=== PATIENT | male | born 1950 | race Caucasian/White ===

== ENCOUNTER 2018-05-15 11:04 | Inpatient (IN) | payer MEDICARE, MEDICAID ==
[~2018-05-15] VITALS: Ht 182.9 cm; Wt 62.7 kg
--- NOTE | ~2018-05-15 | HEMODYNAMI ---
PATIENT:PAWEL TOBAR MEDICAL RECORD: [id number] : 54 LOCATION:[place] [address] ADMISSION DATE: 05/15/18 Generatedon:05/17/20187:56 Patient name: PAWEL TOBAR Patient #: [id number] SSN: DO B: 1950 Date of study: 05/17/2018 Page: Of Hemodynamic Procedure Report Patient Data Patient Demographics Procedure consent was obtained First Name: PAWEL Gender: Male Last Name: AMADOU : 1950 Patient #: [id number] Age: 67 year(s) Race: Unknown Additional ID: [id number] Contact details Address: [address] [place] [address] State: [place] City: [place] Zip code: [address] Past Medical History Allergies: No known allergies Admission Admission Data Admission Date: 05/15/2018 Admission Time: 16:35 Room #: [facility] Procedure Procedure Types Cath Procedure Diagnostic Procedure LHC LHC w/Coronaries Sedation Charges Moderate Sedation up to 15 minutes Procedure Description Procedure Date Procedure Date: 05/17/2018 Procedure Start Time: 7:33 Procedure End Time: 7:56 Procedure Staff Name Function Kiko Currie MD Performing Physician Maggi Finch RT Monitor Paola Stern RN Nurse Berkley Noriega RT Scrub Amanda Blackburn RT Scrub Duncan Loo RT Surgical Dental Assistant Rachel Ernst RN Surgical Dental Assistant Procedure Data Cath Procedure Fluoroscopy Diagnostic fluoroscopy Total fluoroscopy Time: 3.9 time: 3.9 min min Diagnostic fluoroscopy Total fluoroscopy dose: 371 dose: 371 mGy mGy Contrast Material Contrast Material Type Amount (ml) Isovue 300 138 Entry Location Entry Primary Successful Side Size Upsize Upsize Entry Closure Succes sful Closure Location (Fr) 1 (Fr) 2 (Fr) Remarks Device Remarks Femoral Right 5 Fr Exoseal artery Estimated blood loss: 5 ml Diagnostic catheters Device Type Used For End Catheter Placement MULTIPACK JL 4.0 5Fr Left Coronary catheter Angiography DIAGNOSTIC JL 5 5Fr Left Coronary catheter ([id number]) Angiography MULTIPACK 3DRC 5Fr Right Coronary catheter Angiography MULTIPACK Pigtail 5 Fr LV Angiography catheter MULTIPACK Pigtail 5 Fr Aortic Root catheter Angiography Procedure Complications No complications Procedure Medications Medication Administration Route Dosage Oxygen etCO2 Nasal cannula 2 l/min Lidocaine 2% added to field 20 Heparin Flush Bag added to field 2 bags (1000units/500ml NS) 0.9% NaCl I.V. 100 ml/hr Versed I.V. 1 mg Fentanyl I.V. 50 mcg Versed I.V. 1 mg Fentanyl I.V. 50 mcg Hemodynamics Rest Heart Rate: 112 (bpm) Pressure Samples Time Site Value (mmHg) Purpose Heart Use Rate(bpm) 7:47 LV 126/1,12 EDP 108 7:48 AO 126/62(90) Pullback 102 7:48 LV 120/-3,5 Pullback 102 Gradients Valve Time Site 1 Site 2 Mean SEP/DFP Peak To Heart Use (mmHg) (sec/min) Peak Rate (mmHg) (bpm) Aortic 7:48 LV AO 0 9 0 102 120/-3,5 126/62(90) Calculations Valve P-P Mean Valve Index Valve Source Name Gradient Area Flow (cm2) Aortic 0 0 0 0 Snapshots Pre Cath Intra NCS Post Cath Vital Signs Time Heart Resp SPO2 etCO2 NIBP (mmHg) Rhythm Pain Sedation Rate (ipm) (%) (mmHg) Status Level (bpm) 7:15:16 112 18 100 29.5 149/88(101) NSR 0 (11) 10(A) , No pain 7:19:28 110 17 100 26.5 134/78(99) NSR 0 (11) 10(A) , No pain 7:23:38 106 16 99 26.5 126/80(94) NSR 0 (11) 10(A) , No pain 7:27:44 104 16 97 15.1 118/74(95) NSR 0 (11) 9(A) , No pain 7:31:49 104 27 97 16.6 120/76(93) NSR 0 (11) 9(A) , No pain 7:35:57 105 14 97 19.6 121/78(92) NSR 0 (11) 9(A) , No pain 7:40:05 104 11 96 16.6 121/74(91) NSR 0 (11) 9(A) , No pain 7:44:11 100 14 96 29.5 114/70(88) NSR 0 (11) 9(A) , No pain 7:48:13 102 12 96 29.5 118/74(88) NSR 0 (11) 9(A) , No pain 7:52:22 100 15 96 30.2 121/73(87) NSR 0 (11) 10(A) , No pain Medications Time Medication Route Dose Verified Delivered Reason Notes Effe ctiveness by by 7:19:42 Oxygen etCO2 2 Kiko Buffie used for Nasal l/min Kush Ernst RN procedure cannula 7:20:08 Lidocaine 2% added 20ml Kiko Kiko for local to vial Kush Currie MD anesthetic field 7:20:17 Heparin Flush added 2 Kiko Kiko used for Bag to bags Kush Currie MD procedure (1000units/500ml field NS) 7:20:29 0.9% NaCl I.V. 100 Kiko Buffie Per ml/hr Kush Ernst RN physician 7:23:01 Versed I.V. 1 mg Kiko Buffie for Kush Ernst RN sedation 7:23:09 Fentanyl I.V. 50 Kiko Buffie for mcg Kush Ernst RN sedation 7:29:11 Versed I.V. 1 mg Kiko Buffie for Kush Ernst RN sedation 7:29:15 Fentanyl I.V. 50 Kiko Buffie for mcg Kush Ernst RN sedation Procedure Log Time Note 6:55:39 Duncan Loo RT(R) sent for patient. Start room use. 6:55:40 Time tracking: Regular hours (M-F 7:00 - 5:00) 6:55:44 Plan of Care:Hemodynamics will remain stable., Cardiac rhythm will remain stable., Comfort level will be maintained., Respiratory function will remain adequate., Patient/ family verbilizes understanding of procedure., Procedure tolerated without complication., Recovers from procedure without complications.. 7:08:05 Patient received from PCU to CCL 1 Alert and oriented. Tansferred to table in Supine position. 7:08:06 Warm blankets applied, and amanda hugger turned on for patient comfort. 7:08:06 Correct patient and procedure confirmed by team. 7:08:08 Signed procedure consent form obtained from patient. 7:08:10 ECG and BP/O2 sat monitors applied to patient. 7:08:11 Full Disclosure recording started 7:13:01 Rhythm: sinus tachycardia 7:13:14 Vital chart was started 7:13:27 H&P Date Dictated: 05/16/2018 Within 30 days and on chart.. 7:13:29 Pre-procedure instructions explained to patient. 7:13:29 Pre-op teaching completed and patient verbalized understanding. 7:13:34 Family in patients room. 7:13:35 Patient NPO since Midnight. 7:13:42 Patient allergic to No known allergies 7:13:44 Is the patient allergic to Iodine/contrast media? No. 7:13:45 Is patient on blood thinner?No 7:13:46 Patient diabetic? No. 7:14:00 Previous problem with sedation/anesthesia? No ? 7:14:02 Snore? Yes 7:14:04 Sleep apnea? No 7:14:06 Deviated septum? No 7:14:06 Opens mouth fully? Yes 7:14:07 Sticks out tongue? Yes 7:14:12 Airway obstruction? Yes COPD 7:14:16 Dentures? Yes IN 7:14:20 Pre procedure: right dorsailis pedis pulse 2+ Normal; easily identifiable; not easily obliterated 7:14:23 Patient pain scale 0/10 ?. 7:14:30 IV patent on arrival in right wrist with 0.9% NaCl at O. 7:14:33 Lab results completed and on chart. 7:14:36 Right groin area was prepped with chlora-prep and draped in sterile fashion 7:14:37 Alarms reviewed by R. N. 7:14:37 Sharps counted by scrub and verified by R.N. 7:14:45 Use device set Femoral Dx 7:14:46 ACIST Syringe (04536) opened to sterile field. 7:14:47 Bag Decanter (2002) opened to sterile field. 7:14:47 Medline Cath Pack ([id number]) opened to sterile field. 7:14:48 DIAGNOSTIC WIRE .035 260cm J wire (491339) opened to sterile field. 7:14:49 ACIST Hand Control (66517) opened to sterile field. 7:14:49 ACIST Manifold (17277) opened to sterile field. 7:14:50 DIAGNOSTIC Multipack 5Fr catheter set (PL7105) opened to sterile field. 7:14:51 Tegaderm 4 x 4 (1626W) opened to sterile field. 7:14:52 SHEATH 5FR Arnot ([id number]) opened to sterile field. 7:15:05 Baseline sample Acquired. 7:19:42 Oxygen 2 l/min etCO2 Nasal cannula was administered by Rachel Ernst RN; used for procedure; 7:20:08 Lidocaine 2% 20ml vial added to field was administered by Kiko Currie MD; for local anesthetic; 7:20:17 Heparin Flush Bag (1000units/500ml NS) 2 bags added to field was administered by Kiko Currie MD; used for procedure; 7:20:29 0.9% NaCl 100 ml/hr I.V. was administered by Rachel Ernst RN; Per physician; 7:22:21 Final Timeout: patient, procedure, and site verified with staff and physician. All members of the team are in agreement. 7:22:23 Right groin site verified by team. 7:22:26 Fire Safety Assessment: A--An alcohol-based skin anteseptic being used preoperatively., C--Open oxygen or nitrous oxide is being used., D--An ESU, laser, or fiber-optic light is being used. 7:22:30 Physical assessment completed. ASA score P 2 - A patient with mild systemic disease as per Kiko Currie MD. 7:22:32 Sedation plan: IV Moderate Sedation Medication:Versed, Fentanyl 7:23:01 Versed 1 mg I.V. was administered by Rachel Ernst RN; for sedation; 7:23:09 Fentanyl 50 mcg I.V. was administered by Rachel Ernst RN; for sedation; 7:29:11 Versed 1 mg I.V. was administered by Rachel Ernst RN; for sedation; 7:29:11 Zero performed for pressure channel P1 7:29:15 Fentanyl 50 mcg I.V. was administered by Rachel Ernst RN; for sedation; 7:33:33 Procedure started. 7:33:36 Local anesthetic to right femoral artery with Lidocaine 2% by Kiko Currie MD.INITIAL ACCESS ONLY 7:34:47 A 5 Fr sheath was inserted into the Right Femoral artery 7:35:41 A MULTIPACK JL 4.0 5Fr catheter was advanced over the wire and used for Left Coronary Angiography. UNABLE TO CANNULATE 7:36:36 Catheter removed. 7:37:18 A DIAGNOSTIC JL 5 5Fr catheter ([id number]) was advanced over the wire and used for Left Coronary Angiography. 7:41:39 Catheter removed. 7:42:36 A MULTIPACK 3DRC 5Fr catheter was advanced over the wire and used for Right Coronary Angiography. 7:44:51 Catheter removed. 7:47:21 A MULTIPACK Pigtail 5 Fr catheter was advanced over the wire and used for LV Angiography. 7:47:37 LV gram done using ELKINS 7:47:39 LV hemodynamics recorded. 7:47:42 Injector settings: Ml/sec: 7, Volume: 15, 7:47:59 EF : 40 % 7:48:39 A MULTIPACK Pigtail 5 Fr catheter was advanced over the wire and used for Aortic Root Angiography. 7:49:15 Injector settings: Ml/sec: 15, Volume: 30, 7:49:39 Catheter removed. 7:49:54 EXOSEAL 5Fr (EX500) opened to sterile field. 7:50:08 Sheath removed intact; hemostasis achieved with Exoseal to the Right Femoral artery. 7:50:11 Procedure ended.(Physican Out) 7:50:33 Fluoroscopy time 03.90 minutes. 7:50:37 Fluoroscopy dose: 371 mGy 7:50:37 Flurop Dose total: 371 7:50:58 Contrast amount:Isovue 300 138ml. 7:51:00 Sharps counted by scrub and verified by R.N. 7:51:01 Insertion/operative site no bleeding no hematoma. 7:51:04 Post-op/insertion site Right Femoral artery dressed using a 4 x 4 and Tegaderm. 7:53:52 Post right femoral artery:stable, clean and dry 7:53:54 Post Procedure Pulses reassessed and unchanged 7:53:56 Post-procedure physical assessment completed. ASA score P 2 - A patient with mild systemic disease as per Kiko Currie MD. 7:54:00 Post procedure rhythm: unchanged. 7:54:03 Estimated blood loss: 5 ml 7:54:05 Post procedure instruction explained to patient.Patient verbalizes understanding. 7:54:05 Patient needs reinforcement of post procedure teaching. 7:54:11 Procedure Complication : No complications 7:54:15 See physician's report for complete and final results. 7:55:07 Procedure type changed to Cath procedure, Diagnostic procedure, LHC, LHC w/Coronaries, Sedation Charges, Moderate Sedation up to 15 minutes 7:55:20 Procedure and supply charges have been captured, reviewed, submitted and are correct. 7:55:39 Vital chart was stopped 7:55:44 Report given to PCU. 7:55:48 Patient transfered to PCU with Bed. 7:56:01 Procedure ended. 7:56:01 Full Disclosure recording stopped 7:56:10 End room use (Document Last) Device Usage Item Name Manufacture Quantity Catalog Hospital Part Current Minimal L ot# / Number Charge Number Stock Stock Serial# Code ACIST Acist 1 62061 441093 604927 599119 20 Syringe Medical (50486) Systems Inc Bag Microtek 1 473618 53768 529253 5 Decanter Medical Inc. () Medline Medline 1 [id number] 470129 11427 801195 5 Cath Pack ([id number]) DIAGNOSTIC St Christos 1 920956 555575 118118 122221 30 WIRE .035 260cm J wire (219329) ACIST Hand Acist 1 11863 179139 282641 683369 5 Control Medical (93639) Systems Inc ACIST Acist 1 12224 800051 193148 917057 5 Manifold Medical (96210) Systems Inc DIAGNOSTIC Cardinal 1 [id number] 170635 39517 812511 30 Multipack Health 5Fr catheter set (HL2220) Tegaderm 4 3M 1 1626W 738350 779979 829067 5 x 4 (1626W) SHEATH 5FR Terumo 1 LUJ186 319470 681295 862354 5 Arnot (MDX252) MULTIPACK Cardinal 1 904223 5 JL 4.0 5Fr Health catheter DIAGNOSTIC Cardinal 1 134455Y 202607 738601 682883 5 JL 5 5Fr Health catheter (300851Z) MULTIPACK Cardinal 1 708790 5 3DRC 5Fr Health catheter MULTIPACK Cardinal 1 110089 5 Pigtail 5 Health Fr catheter EXOSEAL 5Fr Cardinal 1 EX500 763756 627302 692993 10 (EX500) Health Signature Audit Glover Stage Time Signature Unsigned Intra-Procedure 05/17/2018 Maggi 7:56:33 AM Counts RT(R) Signatures Monitor : Maggi Signature : Counts RT Date : Time : [address] [place] [address]
[2018-05-15 12:02] LABS: BASOPHILS 0.1 % (0-2); EOSINOPHILS 0 % (0-7); HEMATOCRIT 45.7 % (42.0-54.0); HEMOGLOBIN 15.1 g/dL (13.5-17.5); IMMATURE GRANULOCYTES 0.3 % (0-5); LYMPHOCYTES 4.2 % (15-50); MCH 28.6 pg (26.0-34.0); MCV 86.6 fL (80.0-100.0); MEAN PLATELET VOLUME 8.9 fL (7.4-10.4); MONOCYTES 3.4 % (2-11); PLATELET COUNT 361 10x3/uL (130-400); RBC 5.28 10x6/uL (4.20-6.10); RDW 15.8 % (11.5-14.5); WBC 11.9 10x3/uL (4.8-10.8)
[2018-05-15 12:25] VITALS: BP 132/75
[2018-05-15 12:25] LABS: INR 1.13 (0.85-1.17)
[2018-05-15 12:28] LABS: ALBUMIN 3.9 g/dL (3.4-5.0); ANION GAP 16.4 mmol/L (8-16); BILIRUBIN - TOTAL 0.48 mg/dL (0.2-1.3); CALCIUM 8.8 mg/dL (8.5-10.1); CARBON DIOXIDE 24.5 mmol/L (21.0-32.0); CREATININE - SERUM 1.1 mg/dL (0.6-1.3); POTASSIUM - SERUM 4.9 mmol/L (3.5-5.1); PROTEIN - SERUM 7.7 g/dL (6.4-8.2)
[2018-05-15 12:46] LABS: TROPONIN-I 0.725 ng/mL (0.000-0.060)
[2018-05-15 13:35] VITALS: BP 142/84
[2018-05-15 15:46] VITALS: BP 119/65
[2018-05-15 17:40] VITALS: BP 113/95
[2018-05-15] MEDS ORDERED: XANAX1 MG PO (21:20)
[2018-05-15] MEDS ORDERED: NEURONTIN 300300 MG PO (21:21)
[2018-05-15] MEDS ORDERED: MEGACE40 MG PO (21:21)
[2018-05-15] MEDS ORDERED: XOPENEX 0.0.63 MG/3 UPD (21:23)
[2018-05-15] MEDS ORDERED: ALBUTEROL SULF8.5 GM INH (21:40)
[2018-05-15 23:52] VITALS: BP 109/63
[2018-05-16 03:30] VITALS: BP 109/63; BMI 19.1
[2018-05-16 03:45] VITALS: BP 113/57
[2018-05-16 06:34] LABS: BASOPHILS 0 % (0-2); EOSINOPHILS 0.2 % (0-7); HEMOGLOBIN 12.2 g/dL (13.5-17.5); IMMATURE GRANULOCYTES 0.3 % (0-5); LYMPHOCYTES 8.2 % (15-50); MCH 28.3 pg (26.0-34.0); MCHC 33.7 g/dL (31.0-37.0); MEAN PLATELET VOLUME 9.4 fL (7.4-10.4); MONOCYTES 7.9 % (2-11); NEUTROPHILS 83.4 % (40-80); PLATELET COUNT 344 10x3/uL (130-400); RBC 4.31 10x6/uL (4.20-6.10); RDW 15.8 % (11.5-14.5); WBC 11.7 10x3/uL (4.8-10.8)
[2018-05-16 06:41] LABS: HEMATOCRIT 36.2 % (42.0-54.0)
[2018-05-16 07:00] LABS: CALC OSMOLALITY 283 mosm/kg (275-300); CARBON DIOXIDE 23.9 mmol/L (21.0-32.0); CHLORIDE - SERUM 103 mmol/L (98-107); GLUCOSE 109 mg/dL (74-106); SODIUM 138 mmol/L (136-145); UREA NITROGEN 31 mg/dL (7-18); eGFR NON AFRICAN AMERICAN 80 mL/min (90-120)
[2018-05-16 08:44] VITALS: BP 113/59
[2018-05-16 12:02] VITALS: BP 116/65
[2018-05-16 13:56] VITALS: Ht 182.9 cm; Wt 62.7 kg
[2018-05-16 16:01] VITALS: BP 148/77
[2018-05-16] MEDS ORDERED: BREO ELLIPTA 11 EACH INH (19:15)
[2018-05-16 20:00] VITALS: BP 147/87
[2018-05-17] VITALS: BP 133/67
[2018-05-17 04:00] VITALS: BP 103/64
[2018-05-17 05:36] LABS: BASOPHILS 0.2 % (0-2); EOSINOPHILS 1.4 % (0-7); HEMATOCRIT 40.5 % (42.0-54.0); HEMOGLOBIN 13.4 g/dL (13.5-17.5); IMMATURE GRANULOCYTES 0.1 % (0-5); LYMPHOCYTES 12.1 % (15-50); MCH 27.9 pg (26.0-34.0); MCHC 33.1 g/dL (31.0-37.0); MCV 84.2 fL (80.0-100.0); MONOCYTES 11.9 % (2-11); NEUTROPHILS 74.3 % (40-80); PLATELET COUNT 341 10x3/uL (130-400); RBC 4.81 10x6/uL (4.20-6.10); RDW 15.7 % (11.5-14.5)
[2018-05-17 05:46] LABS: WBC 8.3 10x3/uL (4.8-10.8)
[2018-05-17 05:48] LABS: CALCIUM 8.1 mg/dL (8.5-10.1); CARBON DIOXIDE 26.4 mmol/L (21.0-32.0); CREATININE - SERUM 1.2 mg/dL (0.6-1.3); POTASSIUM - SERUM 3.4 mmol/L (3.5-5.1)
[2018-05-17 09:47] VITALS: BP 115/66
[2018-05-17 20:00] VITALS: BP 145/77
[2018-05-18] VITALS: BP 153/76
[2018-05-18 04:00] VITALS: BP 138/75
[2018-05-18 06:24] LABS: BASOPHILS 0.3 % (0-2); EOSINOPHILS 1.6 % (0-7); HEMATOCRIT 40.4 % (42.0-54.0); HEMOGLOBIN 13.3 g/dL (13.5-17.5); IMMATURE GRANULOCYTES 0.3 % (0-5); LYMPHOCYTES 13.6 % (15-50); MCH 28.2 pg (26.0-34.0); MCHC 32.9 g/dL (31.0-37.0); MCV 85.6 fL (80.0-100.0); MEAN PLATELET VOLUME 9.4 fL (7.4-10.4); MONOCYTES 11.4 % (2-11); NEUTROPHILS 72.8 % (40-80); PLATELET COUNT 332 10x3/uL (130-400); RBC 4.72 10x6/uL (4.20-6.10); RDW 15.7 % (11.5-14.5)
[2018-05-18 06:44] LABS: ANION GAP 13.1 mmol/L (8-16); CALCIUM 8.2 mg/dL (8.5-10.1); CARBON DIOXIDE 29.9 mmol/L (21.0-32.0); CREATININE - SERUM 1.1 mg/dL (0.6-1.3)
[2018-05-18 08:07] VITALS: BP 117/69
[2018-05-18 12:11] VITALS: BP 121/72
[2018-05-18 15:33] VITALS: BP 116/64
[2018-05-18 20:00] VITALS: BP 138/78
[2018-05-19 04:00] VITALS: BP 140/70
[2018-05-19 06:40] LABS: ANION GAP 15.5 mmol/L (8-16); CALCIUM 8.4 mg/dL (8.5-10.1); CARBON DIOXIDE 29.2 mmol/L (21.0-32.0); CREATININE - SERUM 1.1 mg/dL (0.6-1.3); POTASSIUM - SERUM 3.7 mmol/L (3.5-5.1)
[2018-05-19 06:42] LABS: BASOPHILS 0.3 % (0-2); EOSINOPHILS 2.3 % (0-7); HEMATOCRIT 41.4 % (42.0-54.0); HEMOGLOBIN 13.8 g/dL (13.5-17.5); IMMATURE GRANULOCYTES 0.2 % (0-5); LYMPHOCYTES 11.8 % (15-50); MCH 28.3 pg (26.0-34.0); MCHC 33.3 g/dL (31.0-37.0); MEAN PLATELET VOLUME 9.3 fL (7.4-10.4); MONOCYTES 10.2 % (2-11); NEUTROPHILS 75.2 % (40-80); PLATELET COUNT 365 10x3/uL (130-400); RBC 4.87 10x6/uL (4.20-6.10); RDW 15.6 % (11.5-14.5); WBC 9.3 10x3/uL (4.8-10.8)
[2018-05-19 08:40] VITALS: BP 108/49
[2018-05-19 11:37] VITALS: BP 120/70
[2018-05-19 15:56] VITALS: BP 120/68
[2018-05-19 20:00] VITALS: BP 144/75
[2018-05-20] VITALS: BP 106/48
[2018-05-20 04:00] VITALS: BP 107/64
[2018-05-20 06:26] LABS: ANION GAP 12.6 mmol/L (8-16); CALCIUM 8.5 mg/dL (8.5-10.1); CARBON DIOXIDE 29.9 mmol/L (21.0-32.0); CREATININE - SERUM 1.2 mg/dL (0.6-1.3); POTASSIUM - SERUM 3.5 mmol/L (3.5-5.1)
[2018-05-20 06:30] LABS: HEMATOCRIT 40.8 % (42.0-54.0); HEMOGLOBIN 13.6 g/dL (13.5-17.5); LYMPHOCYTES 7.1 % (15-50); MCH 28.2 pg (26.0-34.0); MCHC 33.3 g/dL (31.0-37.0); MCV 84.5 fL (80.0-100.0); MEAN PLATELET VOLUME 8.9 fL (7.4-10.4); NEUTROPHILS 82.6 % (40-80); PLATELET COUNT 345 10x3/uL (130-400); RBC 4.83 10x6/uL (4.20-6.10); RDW 15.1 % (11.5-14.5); WBC 9.6 10x3/uL (4.8-10.8)
[2018-05-20 08:20] VITALS: BP 110/62
[2018-05-20 13:01] VITALS: BP 111/62
[2018-05-20] MEDS ORDERED: LISINOPRIL2.5 MG PO (13:10)
[2018-05-20] MEDS ORDERED: CARDIZEM CD240 MG PO (13:11)
--- NOTE | 2018-05-20 16:19 | MORECARE ---
CASE MANAGEMENT DISCHARGE SUMMARY PATIENT: PAWEL TOBAR UNIT: [id number] ADM DATE: 05/15/18 AGE: 67 : 52 SEX: M ROOM/BED: D.2131 AUTHOR: MADELINE FLAHERTY PHYSICIAN: REFERRING PHYSICIAN: BRITTNEY PRINCE MD DATE OF SERVICE: 05/20/18 Discharge Plan Patient Name: PAWEL TOBAR Facility: [facility]:[place] : 1950 Planned Disposition: Home Anticipated Discharge Date: 05/20/18 Discharge Date: 05/20/2018 Expected LOS: 5 Initial Reviewer: [email or web address] Initial Review Date: 05/20/2018 Generated: 05/20/18 5:19 pm DCPIA - Discharge Planning Initial Assessment Updated by [email or web address]: Carson Rice on 05/20/18 4:15 pm * Is the patient Alert and Oriented? Yes * How many steps to enter\exit or inside your home? 1-0 / 4-I * PCP HYGIENE COORDINATOR [facility] [place] * Pharmacy [facility] * Preadmission Environment Home with Family * ADLs Independent * Equipment Nebulizer Oxygen * Other Equipment HOME OXYGEN ONLY, WEARS PRN [facility] - PROVIDER * List name and contact numbers for known caregivers / representatives who currently or will assist patient after discharge: DARWIN TOBAR, SPOUSE, * Verbal permission to speak to the caregivers and representatives has been obtained from the patient. Yes * Community resources currently utilized None * Please name any agencies selected above. NONE * Additional services required to return to the preadmission environment? No * Can the patient safely return to the preadmission environment? Yes * Has this patient been hospitalized within the prior 30 days at any hospital? No Patient Name: PAWEL TOBAR Page [id number] at 1619 All edits/amendments must be made on the electronic document DICTATION DATE: 05/20/18 1619 SAND FILLER: NICOLE 05/20/18 1619 RPT#: [id number] DC DATE:05/20/18 STATUS: DIS IN [place] [address] [place] [address] END OF REPORT
[2018-05-20] MEDS ORDERED: CARDIZEM CD360 MG PO (16:28)
--- NOTE | 2018-05-20 16:36 | MORECARE ---
CASE MANAGEMENT DISCHARGE SUMMARY PATIENT: PAWEL TOBAR UNIT: [id number] ADM DATE: 05/15/18 AGE: 67 : 52 SEX: M ROOM/BED: D.2131 AUTHOR: REYNOLD,DOC PHYSICIAN: REFERRING PHYSICIAN: BRITTNEY PRINCE MD DATE OF SERVICE: 05/20/18 Discharge Plan Patient Name: PAWEL TOBAR Facility: [facility]:[place] : 1950 Planned Disposition: Home Anticipated Discharge Date: 05/20/18 Discharge Date: 05/20/2018 Expected LOS: 5 Initial Reviewer: [email or web address] Initial Review Date: 05/20/2018 Generated: 05/20/18 5:35 pm Comments DCP- Discharge Planning Updated by [email or web address]: Carson Rice on 05/20/18 3:[address] Patient Name: PAWEL TOBAR Admission Status: ER Accout number: [id number] Admission Date: 05-15-2018 : 1950 Admission Diagnosis:SHORTNESS OF BREATH Attending: BRITTNEY PRINCE Current LOS: 5 Anticipated DC Date: 05-20-2018 Planned Disposition: Home Primary Insurance: [facility] MEDICARE SOLUTIONS Discharge Planning Comments: CM MET WITH PT AND SPOUSE/FAMILY IN ROOM TO DISCUSS DISCHARGE PLANNING AND NEEDS. PAWEL TOBAR provided verbal consent to discuss current and ongoing needs with/in the presence of: SPOUSE, DARWIN AND DAUGHTER BRIAN. PT REPORTS LIVING AT HOME INDEPENDENTLY WITH HIS SPOUSE. PT HAS NEBULIZER AND HOME OXYGEN FROM [facility]. PT USES THE OXYGEN ONLY WHEN NEEDED. PT HAS NO OUTSIDE SERVICES ASSISTING IN THE HOME. CM DISCUSSED AVAILABILITY OF HOME HEALTH, REHAB SERVICES AND MEDICAL EQUIPMENT. PT DENIES DISCHARGE NEEDS, REPORTS HIS FAMILY IS HERE TO PICK HIM UP FOR DISCHARGE HOME. IMPORTANT MESSAGE FROM MEDICARE PROVIDED AND EXPLAINED. PT WANTS TO TALK TO EXTRUDING PRESS ADJUSTER PRIOR TO LEAVING AND PT'S SPOUSE IS CONSIDERING GETTING A SECOND OPINION. PT'S BEDSIDE NURSE ENTERED ROOM AND INFORMED PT THAT THE EXTRUDING PRESS ADJUSTER WILL COME AND SEE THEM SHORTLY. PT AND SPOUSE ASKED ABOUT MEDICAID, CM REVIEWED ADMISSION DATA AND SPOKE TO [place] IN THE BUSINESS OFFICE WHO INFORMED CM THAT PT'S MEDICAID IS ACTIVE. CM INFORMED PT AND SPOUSE. PT DENIES DISCHARGE NEEDS. SALICYLIC ACID BLENDER NOTIFIED. Track Laying Supervisor: Carson Rice DCPIA - Discharge Planning Initial Assessment Updated by [email or web address]: Carson Rice on 05/20/18 4:15 pm * Is the patient Alert and Oriented? Yes * How many steps to enter\exit or inside your home? 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 Yes * Community resources currently utilized None * Please name any agencies selected above. NONE * Additional services required to return to the preadmission environment? No * Can the patient safely return to the preadmission environment? Yes * Has this patient been hospitalized within the prior 30 days at any hospital? No Coverage Notice Reviewer: [id number] - Carson Rice Notice Issued Date-Time: 05/20/2018 14:15 Notice Type: IM Discharge Notice Notice Delivered To: Patient Relationship to Patient: Explosives Mixer Operator Name: Delivery Method: HAND - Hand Delivered Radha Days: Prior Verbal Notification: Recipient Understood Notice: Yes Recipient Signature: Yes Med Rec Note Co-signed by Attending: Coverage Notice Comment: Last DP export: 05/20/18 3:19 p Patient Name: PAWEL TOBAR Page 11894 at 1636 All edits/amendments must be made on the electronic document DICTATION DATE: 05/20/18 1635 HOUSING MANAGER: NICOLE 05/20/18 1635 RPT#: [id number] DC DATE:05/20/18 STATUS: DIS IN [facility] [address] [place] [address] END OF REPORT
== END 2018-05-20 16:12 | disposition home or self-care (01) | DRG 286 ==
LOC: D.ER 11:04 → D.M2 16:35 → D.EDHOLD 16:35 → D.M2 19:28
PROVIDERS: Family Medicine; Internal Medicine Cardiovascular Disease; ADMIT Internal Medicine Nephrology
PROC: 4A023N7 Measurement of Cardiac Sampling and Pressure, Left Heart, Percutaneous Approach (ICD-10-PCS; 2018-05-17)
PROC: B3101ZZ Fluoroscopy of Thoracic Aorta using Low Osmolar Contrast (ICD-10-PCS; 2018-05-17)
PROC: B2111ZZ Fluoroscopy of Multiple Coronary Arteries using Low Osmolar Contrast (ICD-10-PCS; principal; 2018-05-17 06:55)
PROC: B2151ZZ Fluoroscopy of Left Heart using Low Osmolar Contrast (ICD-10-PCS; 2018-05-17 06:55)
DX: I47.1 Supraventricular tachycardia (principal); J96.21 Acute and chronic respiratory failure with hypoxia; I31.3 Pericardial effusion (noninflammatory); J44.0 Chronic obstructive pulmonary disease with (acute) lower respiratory infection; J44.1 Chronic obstructive pulmonary disease with (acute) exacerbation; I24.8 Other forms of acute ischemic heart disease; J20.9 Acute bronchitis, unspecified; I10 Essential (primary) hypertension; K21.9 Gastro-esophageal reflux disease without esophagitis; F17.200 Nicotine dependence, unspecified, uncomplicated; I45.10 Unspecified right bundle-branch block; R91.1 Solitary pulmonary nodule